=== PATIENT | female | born 1980 | race Caucasian/White ===

== ENCOUNTER → 2019-04-01 07:28 | Outpatient (CLI) | payer OTHER, SELFPAY ==
--- NOTE | 2019-04-01 08:00 | BRBX_PTH ---
PATIENT: ELA RYAN LOC: [facility] U#:[id number] AGE/SX: 44/F ROOM: RE04/01/[address]: Dr. Charline Tavera MD : 1980 BED: DIS: SPEC #: [id number] RECD: 04/01/19 09:10 STATUS: RANDY RUDOLPH #: [id number] IRMA: 04/01/19 08:[address]: Charline Tavera DEPT: SURGICAL PATHOLOGY RECD BY: Gabino Rowell ENTERED: 04/01/19 13:30 SP TYPE: BREAST BX OT DR: MD Zeeshan Martines MD Tissues: Left breast, NOS Procedures: Surgery Specimen Level IV HEADER OPERATION: Left stereotactic breast biopsy PRE-OP DIAGNOSIS: Left breast outer middle depth microcalcifications at 1 o'clock position TISSUE SUBMITTED: Left breast core tissue ISCHEMIC TIME: 1 minute FIXATION TIME: 11 hours MICROSCOPIC DIAGNOSIS Left breast, outer middle depth microcalcifications at 1 o'clock position, stereotactic core biopsy: Fragments of benign breast tissue with focal mild duct ectasia and associated microcalcifications. Negative for atypia or malignancy. See comment. TERRY:melony 04/02/19 COMMENT Correlation with clinical, radiologic findings and appropriate follow up are necessary. MICROSCOPIC DESCRIPTION Slides are reviewed. GROSS DESCRIPTION Received is one container labeled with the patient's name and not further designated. The specimen consists of multiple elongated fragments of ortiz-yellow fibroadipose tissue that in aggregate measure 3 x 2.5 x 0.3 cm. The entire specimen is submitted in one cassette. / TERRY:melony 04/01/19 TC:5 CPT: 79391
--- NOTE | 2019-04-01 09:43 | PCM.OPRPT ---
Report of Operation Date of Procedure: 04/01/19 Pre-Operative Diagnosis: abnormal calcifications on left breast mammograms Post-Operative Diagnosis: same Surgery/Procedure Performed:: left breast stereotactic biopsy Description of Surgical Findings:: calcifications noted in breast specimen Type of Anesthesia:: Local Specimen's removed: left breast tissue Estimated Blood Loss (mL): minimal Description of Procedure: After informed consent was given, the patient was brought into the breast biopsy suite. Appropriate time out protocol was followed. She was then placed in the prone position on the stereotactic biopsy table. The patient?s left breast was then placed at the opening at the head of the table. A labview programmer compression mammogram was then obtained in the lateral view. The suspicious radiological lesion was then identified. Stereo pictures of the lesion were then taken for XYZ coordinates. The Mammotome biopsy stylus was then positioned where it would be entering into the patient?s breast. The skin at this site was then cleansed with a surgical skin preparation. The skin and subcutaneous tissues at this site were then infiltrated with 1% xylocaine. A small skin incision was made with an 11 blade scalpel. The biopsy stylus was then positioned into the patient?s breast at the proper coordinates of depth. Using the Mammotome vacuum-assist device, several core samples of breast tissue were obtained. A specimen mammogram was the obtained and revealed that the calcifications were within the specimen. A hemostatic marker clip was then placed into the biopsy cavity and a labview programmer film revealed that it was properly deployed. The patient was then placed in the supine position and pressure was applied to the breast until no active bleeding was noted. Steristrips were applied to reapproximate the skin. A unilateral mammogram in the CC and MLO view were then taken which revealed that the marker clip was in the same area as the previous suspicious lesion. The patient tolerated the procedure well and was discharged from the breast biopsy suite in good condition. - Complications none noted
== END ==
PROVIDERS: Family Provider Family Medicine; PCP Family Medicine; Referring Provider Surgery; Visit Provider Surgery
DX: N60.42 Mammary duct ectasia of left breast (principal); R92.1 Mammographic calcification found on diagnostic imaging of breast
CPT/HCPCS: 19081; 88305; J7050